=== PATIENT | male | born 1965 ===

== ENCOUNTER 2020-12-05 08:39 | Outpatient (CLI) | payer OTHER | END 2020-12-05 09:51 | disposition home or self-care (01) | LOC: OFIC 805 08:39 | PROVIDERS: ATTEND Otolaryngology Otology & Neurotology | DX: D37.02 Neoplasm of uncertain behavior of tongue (principal); K14.6 Glossodynia; G47.33 Obstructive sleep apnea (adult) (pediatric) ==

== ENCOUNTER 2022-05-05 13:50 | Inpatient (IN) | payer OTHER ==
[~2022-05-05] VITALS: Ht 172.7 cm; Wt 97.5 kg
== END 2022-05-10 13:19 | disposition home or self-care (01) | DRG 379 ==
LOC: ER 13:50 → SURG 18:01 → ICU 18:01 → SURH 05-09 07:00
PROVIDERS: ADMIT Surgery; ATTEND Surgery
PROC: BW21YZZ Computerized Tomography (CT Scan) of Abdomen and Pelvis using Other Contrast (ICD-10-PCS; 2022-05-05)
PROC: 30233N1 Transfusion of Nonautologous Red Blood Cells into Peripheral Vein, Percutaneous Approach (ICD-10-PCS; 2022-05-06)
PROC: 0DJ08ZZ Inspection of Upper Intestinal Tract, Via Natural or Artificial Opening Endoscopic (ICD-10-PCS; principal; 2022-05-07)
PROC: 4A12X4Z Monitoring of Cardiac Electrical Activity, External Approach (ICD-10-PCS; 2022-05-09)
DX: K92.1 Melena (principal); K26.9 Duodenal ulcer, unspecified as acute or chronic, without hemorrhage or perforation; D64.9 Anemia, unspecified; I10 Essential (primary) hypertension; G47.33 Obstructive sleep apnea (adult) (pediatric); Z20.822 Contact with and (suspected) exposure to COVID-19